=== PATIENT | female | born 1985 | race Caucasian/White ===

== ENCOUNTER 2020-08-14 09:52 | Inpatient (IN) | payer BC ==
[~2020-08-14] VITALS: Ht 170.2 cm; Wt 119.3 kg
--- NOTE | 2020-08-15 08:53 | NUR ---
08/15/20 0853 Roma Dalton 0846-PATIENT ARRIVED BACK TO ROOM 104 FOR RECOVERY. PATIENT AWAKE DENIES PAIN OR NAUSEA. SPINAL LEVEL AT T10. IVF INFUSING WITH LR 20 PITOCIN INTO LEFT HAND CDI. FUNDUS 1 BELOW UMBILICUS FIRM LIGHT RUBRA DRAINAGE ON PAVAN PAD. FERNANDEZ CATHETER DRAINING YELLOW URINE. 0852-PATIENTS HOB OF ELEVATED HOLDING BABY
--- NOTE | 2020-08-16 10:36 | PR ---
[facility] [address] [facility] [place], [place] [address] Signed PP Progress Notes Datetime Report Generated by CPN: 08/16/2020 10:36 SUBJECTIVE: [id number] Pain: Within Normal Limits Nausea/Vomiting: Denies Flatus: Yes Bowel Movement: No Vital Signs: [id number] Vital Signs: Reviewed; Within Normal Limits Cardiovascular: Normal Respiratory: Normal Abdomen/Uterus: Normal Lochia: Normal Breasts: Normal Extremities: Normal Incision: Normal Progress: Normal Exam Comments: NAD No dyspnea RRR Fundus firm below umbilicus Lochia moderate Incision c/d/i Extremities: 1+ edema BLLE, Cleopatra's negative BL IMPRESSION/PLAN/PROCEDURES: [id number] Impression: Normal Progression Plan: Continue Present Management Procedures: None Progress Notes: POD#1 s/p RLTCS Progressing well Ambulating, voiding, tolerating regular diet Pain well-controlled with oral medications Requesting DC to home tomorrow Signing Physician: Igor Aceves DO Copies: *Electronically Signed* 08/16/20 [place]6 IOGR ACEVES DO PATIENT NAME: LETICIA VELIZ PROGRESS NOTE DATE OF : 89 PHYSICIAN: IGOR ACEVES DO RPT #: [id number] REPORT IS CONFIDENTIAL AND NOT TO BE RELEASED WITHOUT AUTHORIZATION [address] [address] Signed ~ *Electronically Signed* 08/16/20 1036 IGOR ACEVES DO PATIENT NAME: LETICIA VELIZ PROGRESS NOTE DATE OF : 89 PHYSICIAN: IGOR ACEVES DO RPT #: [id number] REPORT IS CONFIDENTIAL AND NOT TO BE RELEASED WITHOUT AUTHORIZATION
--- NOTE | 2020-08-17 13:27 | PR ---
[facility] [address] [facility] [place], [place] [address] Signed PP Progress Notes Datetime Report Generated by CPN: 08/17/2020 13:27 SUBJECTIVE: [id number] Pain: Within Normal Limits Nausea/Vomiting: Denies Flatus: Yes Bowel Movement: No Vital Signs: [id number] Vital Signs: Reviewed; Within Normal Limits EXAM: Ongoing Cardiovascular: Normal Respiratory: Normal Abdomen/Uterus: Normal Lochia: Normal Breasts: Normal CVA Tenderness: Normal Extremities: Normal Incision: Normal Progress: Normal Exam Comments: NAD RRR No dyspnea FFBU Incision c/d/i Extremities with trace edema, neg Cleopatra's BL IMPRESSION/PLAN/PROCEDURES: [id number] Impression: Normal Progression Plan: Continue Present Management; Remove [place]; Discharge Procedures: None Progress Notes: POD#2 s/p RLTCS -Progressing well postop -Partner vasectomy for contraception - Signing Physician: Igor Aceves DO Copies: *Electronically Signed* 08/17/20 1327 IGOR ACEVES DO PATIENT NAME: LETICIA VELIZ PROGRESS NOTE DATE OF : 89 PHYSICIAN: IGOR ACEVES DO RPT #: [id number] REPORT IS CONFIDENTIAL AND NOT TO BE RELEASED WITHOUT AUTHORIZATION [facility] [address] [place], [place] [address], [place] [address] Signed ~ *Electronically Signed* 08/17/20 1327 IGOR ACEVES DO PATIENT NAME: LETICIA VELIZ PROGRESS NOTE DATE OF : 89 PHYSICIAN: IGOR ACEVES DO RPT #: [id number] REPORT IS CONFIDENTIAL AND NOT TO BE RELEASED WITHOUT AUTHORIZATION
--- NOTE | 2020-08-17 22:37 | OR ---
[facility] [address] [place], [place] [address] [address] Signed DATE OF OPERATION: 08/15/2020 SURGEON: Igor Aceves DO PROCEDURE: Electronically Signed By: IGOR ACEVES DO 08/17/20 2237 PATIENT NAME: LETICIA VELIZ OPERATIVE REPORT DATE OF : 89 REPORT #: [id number] PHYSICIAN: IGOR ACEVES DO PCP: NO PRIMARY CARE PHYSICIAN REPORT IS CONFIDENTIAL AND NOT TO BE RELEASED WITHOUT AUTHORIZATION [address] [place], [place] [address] Signed Repeat low transverse . OBGYN HOSPITALIST PHYSICIAN: Cristian Lua MD COMPLICATIONS: None. ANESTHESIA: Spinal. LINES: None. DRAINS: Espino catheter. ESTIMATED BLOOD LOSS: 700 mL. FINDINGS: Term viable female , weighing 7 pounds 15 ounces. Apgars 8 and 9 at 1 and 5 minutes respectively. Normal-appearing tubes and ovaries. Uterus with mild scarring of rectus fascia to rectus muscle. No intraabdominal adhesions noted. INDICATION: The patient is a 35-year-old G2, P1 with history of prior . Risks, benefits, and alternatives were discussed in the office. The patient elected to proceed with repeat low-transverse . We reviewed these risks, benefits, and alternatives on the day of surgery and she elected to proceed. DESCRIPTION OF PROCEDURE: The patient was taken to the operating room where she was given Ancef. Spinal anesthesia was placed, SCDs and espino catheter were placed and she was positioned in supine position with a leftward tilt. She was prepped and draped in the normal sterile fashion. Spinal anesthesia was confirmed to be adequate. Incision was made with a scalpel through her prior Pfannenstiel scar and carried down to the underlying fascia. Fascia was incised with a scalpel and then extended laterally with Blevins scissors. Inferior margin of the fascia was grasped and elevated and underlying rectus muscle dissected off bluntly and sharply with Blevins scissors. In a similar Electronically Signed By: IGOR ACEVES DO 08/17/20 2237 PATIENT NAME: LETICIA VELIZ OPERATIVE REPORT DATE OF : 89 REPORT #: [id number] PHYSICIAN: IGOR ACEVES DO PCP: NO PRIMARY CARE PHYSICIAN REPORT IS CONFIDENTIAL AND NOT TO BE RELEASED WITHOUT AUTHORIZATION [facility] [address] [place] [address] Signed fashion, the superior margin of fascia was grasped, elevated, and underlying rectus muscle was dissected off with blunt and sharp dissection. Peritoneum was grasped with hemostats x2 and entered sharply. This was extended superiorly with Blevins's and then inferiorly with Blevins scissors with good visualization of the bladder. It was further extended with lateral traction. An Serg retractor was placed. Hysterotomy was made with a scalpel and extended laterally with gentle traction. Infant's head was grasped and easily elevated to the level of the incision where it was delivered in the MALISSA position. Remainder of baby delivered easily. The cord was immediately doubly clamped and cut and baby was handed off to waiting Nursery team. Segment of cord was collected and cord blood was collected for type and Esha. Placenta was manually expressed and uterus was cleared of clots and debris. Stay suture was placed to the right apex of the incision with 0 Monocryl and the 1st layer closure was completed with 0 Monocryl in a running locked fashion. Second layer of closure was completed in imbricating fashion after which excellent hemostasis was noted. Pelvis was suction irrigated. Uterus, tubes, and ovaries were inspected with findings as noted above. Excellent hemostasis was again noted. Serg retractor was removed. ACell sheet was applied over the hysterotomy. Peritoneum was closed with 2-0 Vicryl in a running fashion. Rectus muscle was reapproximated with 0 Vicryl in a simple interrupted fashion and then perforating vessels were cauterized with Bovie cautery. ACell powder was applied. Fascia was then closed in a running fashion working with 2 separate sutures [id number] and ytyl-de-rhwgd meeting in midline with 0 Vicryl in a running fashion. Subcutaneous layer was inspected and suction irrigated. Perforating vessels were cauterized with Bovie cautery and this layer was closed with 3-0 Vicryl in a running fashion. The skin was closed with skin clips. Uterus was Crede'd. Scant clots were noted. Sponge and instrument counts were correct x2 and the patient was taken to recovery room to recover skin to skin with baby in stable and satisfactory condition. Igor Aceves DO EMZ/MODL /[id number] Copies: Electronically Signed By: IGOR ACEVES DO 08/17/202236 PATIENT NAME: LETICIA VELIZ OPERATIVE REPORT DATE OF : 89 REPORT #: [id number] PHYSICIAN: IGOR ACEVES DO PCP: NO PRIMARY CARE PHYSICIAN REPORT IS CONFIDENTIAL AND NOT TO BE RELEASED WITHOUT AUTHORIZATION [facility] [address] [place] [address] [place], [place] [address] Signed ~ Electronically Signed By: IGOR ACEVES DO 08/17/202236 PATIENT NAME: LETICIA VELIZ OPERATIVE REPORT DATE OF : 89 REPORT #: [id number] PHYSICIAN: IGOR ACEVES DO PCP: NO PRIMARY CARE PHYSICIAN REPORT IS CONFIDENTIAL AND NOT TO BE RELEASED WITHOUT AUTHORIZATION
== END 2020-08-17 13:40 | disposition home or self-care (01) | DRG 788 ==
LOC: FBC 08-15 05:02
PROVIDERS: ADMIT Obstetrics & Gynecology; ATTEND Obstetrics & Gynecology
PROC: 10D00Z1 Extraction of Products of Conception, Low, Open Approach (ICD-10-PCS; principal; 2020-08-15 06:45)
DX: O34.211 Maternal care for low transverse scar from previous cesarean delivery (principal); N85.8 Other specified noninflammatory disorders of uterus; Z37.0 Single live birth; Z3A.39 39 weeks gestation of pregnancy; Z87.891 Personal history of nicotine dependence; Z91.040 Latex allergy status
CPT/HCPCS: 01961; 36415; 85027; J0690; J1100; J1650; J1885; J2001; J2274; J2300; J2370; J2405; J2590; J3010; J7121

== ENCOUNTER 2022-11-07 10:14 | Emergency (ER) | payer BC ==
[~2022-11-07] VITALS: Ht 170.2 cm; Wt 107.8 kg
--- OUTSIDE RECORDS SUMMARY | ~2022-11-07 | XMS | Continuity of Care Document ---
Demographics + + + | Address | [address] | | | [place] [address] | + + + | Preferred Language | Unknown | + + + | Marital Status | | + + + | Sikh Affiliation | Unknown | + + + | Race | White | + + + | Ethnic Group | Not or | + + + Author + + + | Author | [facility] | + + + | Organization | [facility] | + + + | Address | [address] [facility] | | | [place] [address] | + + + | Phone | | + + + Care Team Providers + + + + | Care Crate Repairer Name | Role | Phone | + + + + Unavailable | Unavailable | + + + + Unavailable | Unavailable | + + + + Allergies and Intolerances + + + + + + | date | description | facility | reaction | severity | + + + + + + | (no date) | Urticaria | [facility] | (no reaction) | (no severity) | | [facility] | | | + + + + + + | (no date) | Latex | [facility] | (no reaction) | (no severity) | | [facility] | | | + + + + + + | (no date) | Latex | [facility] | (no reaction) | (no severity) | | | [facility] | | | + + + + + + Encounters No information. Functional Status No information. Immunizations No information. Medications + + + + | date | description | facility | + + + + | 2021-11-14 00:00 | N[facility]ROX[facility] | [facility] | + + + + Problems + + + + | date | description | facility | + + + + | 2021-11-14 00:00 | Sprain of right elbow | [facility] | + + + + Procedures No information. Results/Labs No information. Social History No information. Vital Signs + + + +---------+ | date | measurement | value | units | + + + +---------+ | 2021-11-14 00:00 | BMI | 35.7 | kg/m2 | + + + +---------+ | 2021-11-14 00:00 | BP_diastolic | 110 | mmHg | + + + +---------+ | 2021-11-14 00:00 | BP_systolic | 174 | mmHg | + + + +---------+ | 2021-11-14 00:00 | heart_rate | 101 | /min | + + + +---------+ | 2021-11-14 00:00 | height_metric | 182.88 | cm | + + + +---------+ | 2021-11-14 00:00 | height_standard | 72 | in | + + + +---------+ | 2021-11-14 00:00 | o2_saturation | 99 | % | + + + +---------+ | 2021-11-14 00:00 | respiration_rate | 18 | /min | + + + +---------+ | 2021-11-14 00:00 | temperature_metric | 36.17 | C | | | | | | + + + +---------+ | 2021-11-14 00:00 | | 97.1 | F | | | temperature_standar | | | | | d | | | + + + +---------+ | 2021-11-14 00:00 | weight_metric | 119.29 | kg | + + + +---------+ | 2021-11-14 00:00 | weight_standard | 262.99 | lb | + + + +---------+ | 2021-11-14 00:00 | weight_standard | 263 | lb | + + + +---------+"
--- OUTSIDE RECORDS SUMMARY | ~2022-11-07 | XMS | Continuity of Care Document ---
Demographics + + + | Address | [address] | | | [place] [address] | + + + | Preferred Language | Unknown | + + + | Marital Status | | + + + | Church Affiliation | Unknown | + + + | Race | White | + + + | Ethnic Group | Not or | + + + Author + + + | Author | [facility] | + + + | Organization | [facility] | + + + | Address | [address] [facility] | | | [place] [address] | + + + | Phone | | + + + Care Team Providers + + + + | Care Button Grader Name | Role | Phone | + [...] + | 2021-11-14 00:00 | N[facility]RO[facility] | [facility] | + + + + Problems + + + + | date | description | facility | + + + + | 2021-11-14 00:00 | Sprain of right elbow | [facility] | + + + + Procedures No [...]
[~2022-11-07 10:14] MED LIST: NAPROSYN500 MG PO
[2022-11-07 11:17] LABS: BASOPHILS 0.4 % (0-2); EOSINOPHILS 0.4 % (0-6); HEMATOCRIT 38.4 % (35.0-50.0); HEMOGLOBIN 12.3 g/dL (12.0-18.0); LYMPHOCYTES 20.8 % (24-44); MCH 24.4 (27-36); NEUTROPHILS 69.4 % (39-80); PLATELET COUNT 288 K/uL (140-440); RBC 5.05 M/ul (4.3-5.7); RDW 16.1 (10.5-15.0)
[2022-11-07 11:23] LABS: ANION GAP 14.5 (7-21); BUN/CREATININE RATIO 9.09 (6.0-28.6); CALCIUM 8.8 mg/dL (8.5-10.1); CREATININE, SERUM 0.77 mg/dL (0.55-1.02); POTASSIUM 3.5 mmol/L (3.5-5.1)
[2022-11-07] MEDS ORDERED: BACTRIM DS TAB1 EACH PO (11:40)
[2022-11-07 11:57] VITALS: BP 118/71
== END 2022-11-07 11:55 | disposition home or self-care (01) ==
LOC: ED 10:14
PROVIDERS: Student in an Organized Health Care Education/Training Program
DX: L03.311 Cellulitis of abdominal wall (principal); Z87.891 Personal history of nicotine dependence; Z91.040 Latex allergy status; Z79.899 Other long term (current) drug therapy
CPT/HCPCS: 36415; 80048; 85025; 96374; 99283-25; A9270; J1885